=== PATIENT | male | born 1975 | race Caucasian/White ===

== ENCOUNTER 2023-10-12 16:46 | Emergency (ER) | payer BC ==
[~2023-10-12 16:46] MED LIST: Lidocaine/EPINEPHrine/Tetracaine Topical Gel 3 ML SYRINGE TOP ONE
== END 2023-10-12 19:00 | disposition home or self-care (01) ==
LOC: EDSEX 16:46 → ED 16:46
DX: S01.01XA Laceration without foreign body of scalp, initial encounter (principal); X58.XXXA Exposure to other specified factors, initial encounter